=== PATIENT | male | born 1995 | race Caucasian/White ===

== ENCOUNTER 2018-12-30 17:55 | Emergency (ER) | payer OTHER ==
[~2018-12-30] VITALS: Ht 167.6 cm; Wt 106.6 kg
[2018-12-30 18:13] VITALS: BP 140/72
--- NOTE | 2018-12-30 18:16 | NUR ---
back to er lobby continue to wait for available room for md keller
--- NOTE | 2018-12-30 18:40 | NUR ---
Marcia orosco in [facility] - 12/30/18 at 1841 by MEDJULIUS PT TO [facility]ST[facility] LOZOYA d
--- NOTE | 2018-12-30 19:16 | NUR ---
PT TO ER BED 12
--- NOTE | 2018-12-30 19:20 | NUR ---
23 Y/O M PRESENTED TO ED WITH C/O NECK AND SHOULDER PAIN X5 DAYS. PAIN STARTED IN THE NECK AND RADIATES TO BILATERAL SHOULDERS. 9/10 PAIN, CONTINOUS AND THROBBING. PER PT. "DIONTE HAD THIS PAIN BEFORE BUT IT ONLY LASTED FOR 2 DAYS. THIS TIME ITS WAY WORSE".LIMITED ROM TO UPPER EXTREMETIES AND NECK. EQUAL BILATERAL HAND GRASP. BEDRAILS X1 UP.BED IN LOWEST POSTION. ERMD NOTIFIED. WILL CONTINUE TO MONITOR.
[2018-12-30] MEDS ORDERED: ACETAMINOPHEN EXTRA STRENGTH 500 MG TAB PO ONE (19:55)
--- NOTE | 2018-12-30 20:00 | NUR ---
PT PLACED IN SLING SIZE LARGE
[2018-12-30 20:40] VITALS: BP 138/71
--- NOTE | 2018-12-30 20:40 | NUR ---
Patient discharged with v/s stable. Written and verbal after care instructions given and explained. Patient alert, oriented and verbalized understanding of instructions. Ambulatory with steady gait. All questions addressed prior to discharge. ID band removed. Patient advised to follow up with PMD. Rx of TYLENOL AND FLEXERIL given. Patient educated on indication of medication including possible reaction and side effects. Opportunity to ask questions provided and answered.
== END 2018-12-30 20:40 | disposition home or self-care (01) ==
LOC: MED 17:55
DX: S16.1XXA Strain of muscle, fascia and tendon at neck level, initial encounter (principal); J45.909 Unspecified asthma, uncomplicated; Z88.8 Allergy status to other drugs, medicaments and biological substances; X58.XXXA Exposure to other specified factors, initial encounter; Y93.89 Activity, other specified; Y92.89 Other specified places as the place of occurrence of the external cause; Y99.8 Other external cause status
CPT/HCPCS: 99283